=== PATIENT | male | born 1975 | race Caucasian/White ===

== ENCOUNTER 2019-06-19 17:50 | Emergency (ER) | payer OTHER ==
--- NOTE | 2019-07-02 14:24 | Diagnostic Imaging Report ---
JOHNNY BUTLER [facility] [id number] Formerly [facility] [address] [id number] Report Submission Date: Jun 19, 2019 7:09:19 PM CDT Patient Study Name: ROGER KEEN Date: Jun 19, 2019 6:25:59 PM CDT Modality Type: DX Gender: M Description: ANKLE 3 VIEWS OR MORE : 75 Institution: [facility] Physician: JOHNNY BUTLER 3 views left ankle Clinical history: pain Findings: No acute fracture dislocation is identified. The alignment is normal. Joint spaces are maintained. There is soft tissue swelling about the lateral malleolus. No definite fracture identified. Electronically signed on Jun 19, 2019 7:09:19 PM CDT by: Papa DELUCA
== END 2019-06-19 19:18 | disposition home or self-care (01) ==
LOC: ED 17:50
DX: S93.402A Sprain of unspecified ligament of left ankle, initial encounter (principal); X50.1XXA Overexertion from prolonged static or awkward postures, initial encounter
CPT/HCPCS: 73610; 99282; 99283